=== PATIENT | male | born 1945 | race Caucasian/White ===

== ENCOUNTER → 2017-08-08 | Outpatient (CLI) | payer MEDICARE, OTHER ==
[~2017-08-08] MED LIST: FAMO20TA28 PO; FIN5 PO; FINA5TAB64 PO; FINA5TAB67 PO; ONDA4TAB97 PO; PNEU0.5D3 IM; SCOT TD; TAMS0.4C25 PO; TAMS0.4C70 PO; TAMS0.4C76 PO; TRIA5T TOP
== END ==
LOC: LAB 16:15
PROVIDERS: ATTEND Urology
DX: N40.1 Benign prostatic hyperplasia with lower urinary tract symptoms (principal); R33.9 Retention of urine, unspecified
CPT/HCPCS: 36415; 82040; 82247; 82310; 82374; 82435; 82565; 82947; 84075; 84132; 84153; 84155; 84295; 84450; 84460; 84520

== ENCOUNTER → 2017-08-10 | Outpatient (CLI) | payer MEDICARE, OTHER | LOC: LAB 09:58 | PROVIDERS: ATTEND Urology | DX: R33.9 Retention of urine, unspecified (principal); R79.89 Other specified abnormal findings of blood chemistry | CPT/HCPCS: 36415; 82040; 82247; 82310; 82374; 82435; 82565; 82947; 84075; 84132; 84155; 84295; 84450; 84460; 84520 ==

== ENCOUNTER → 2017-08-14 | Outpatient (CLI) | payer MEDICARE, OTHER ==
--- NOTE | 2017-08-14 15:20 | RADIOLOGY IMAGING REPORT ---
FACILITY: [facility] PATIENT NAME: Shayne Hair : 1945 MR: [id number] V: [id number] EXAM DATE: ORDERING PHYSICIAN: GISSEL ASHLEY TECHNOLOGIST: Location: [facility] Patient: Shayne Hair : 1945 Visit/Account:[id number] Date of Sevice: 08/14/2017 KIDNEYS EXAMINATION: Renal ultrasound. History: Urinary retention COMPARISON STUDIES: Abdomen ultrasound September 28, 2016 FINDINGS: Kidneys: Right kidney- 14.9 x 6.2 x 7 cm Left kidney- 10.8 x 6.9 x 6.2 cm Uniform and symmetric blood flow in each kidney by Doppler ultrasound. Hydronephrosis: none Resistive index on the right 0.65. Resistive index on the left 0.54. There is a 10.1 cm cyst projecting from the upper pole the right kidney. Bladder: The bladder appears extremely trabeculated and irregular. The prevoid bladder volume was 71 6 mL. The post void residual 630 mL. Bilateral ureteral jets are present Abdominal aorta and IVC: Aorta and IVC are patent by Doppler ultrasound. IMPRESSION: Large post void bladder residual of 630 mL. The bladder wall appears extremely trabeculated and irre gular .10.1 cm cyst projects from the upper pole the right kidney Report Dictated By: Vandana Henson MD at 08/14/2017 3:12 PM Report E-Signed By: Vandana Henson MD at 08/14/2017 3:15 PM WSN:[id number]
== END ==
LOC: US 00:55
PROVIDERS: ATTEND Urology
DX: N28.1 Cyst of kidney, acquired (principal); R33.9 Retention of urine, unspecified
CPT/HCPCS: 36415; 76705; 82040; 82247; 82310; 82374; 82435; 82565; 82947; 84075; 84132; 84155; 84295; 84450; 84460; 84520

== ENCOUNTER → 2018-07-11 | Outpatient (CLI) | payer MEDICARE, OTHER | LOC: LAB 08:20 | PROVIDERS: ATTEND Urology | DX: N40.1 Benign prostatic hyperplasia with lower urinary tract symptoms (principal) | CPT/HCPCS: 36415; 84153 ==

== ENCOUNTER → 2018-09-05 | Outpatient (CLI) | payer MEDICARE, OTHER ==
[2018-09-05 11:43] LABS: PLATELET COUNT, AUTOMATED 294 K/uL (150-450)
[2018-09-05 11:59] LABS: LDL CHOLESTEROL 96 mg/dl
--- NOTE | 2018-09-05 12:54 | EKG ---
FACILITY: [facility] PATIENT NAME: JESÚS SOTO : [id number] MR: [id number] V: [id number] EXAM DATE: ORDERING PHYSICIAN: JUAN CORBIN TECHNOLOGIST: KATHARINE Test Reason : PRE-OP Blood Pressure : / mmHG Vent. Rate : 046 BPM Atrial Rate : 046 BPM P-R Int : 316 ms QRS Dur : 146 ms QT Int : 498 ms P-R-T Axes : 031 076 -04 degrees QTc Int : 435 ms Sinus bradycardia with 1st degree AV block Right bundle branch block Abnormal ECG When compared with ECG of 28-SEP-2016 07:00, No significant change was found Confirmed by Yovani Vivas ([id number]) on 09/05/2018 10:36:35 PM Referred By: Confirmed By:Yvoani Sampson
== END ==
LOC: LAB 11:11
PROVIDERS: ATTEND Internal Medicine
DX: K63.5 Polyp of colon (principal); G47.34 Idiopathic sleep related nonobstructive alveolar hypoventilation; E78.5 Hyperlipidemia, unspecified
CPT/HCPCS: 36415; 82040; 82247; 82310; 82374; 82435; 82465; 82565; 82947; 83718; 84075; 84132; 84155; 84295; 84443; 84450; 84460; 84478; 84520; 85025

== ENCOUNTER 2018-10-03 01:18 | Day surgery (SDC) | payer MEDICARE, OTHER ==
--- NOTE | 2018-10-01 20:40 | HISTORY AND PHYSICAL ---
DATE OF ADMISSION: October 03, 2018 CHIEF COMPLAINT BPH with obstructive voiding symptoms and chronic urinary retention. HISTORY OF PRESENT ILLNESS Patient is a 72-year-old white male who was referred to the Urology Clinic one year ago by Dr. Larios for ongoing BPH symptoms. At that time, the patient was on Flomax and Proscar and stated that his symptoms had been slowly progressing over the past several months. He had an AUA Symptom Score of 31 out of 35, a postvoid residual with a bladder scan greater that was greater than 1000 mL. A Urena catheter was placed at that time and returned a 2900 mL volume. He subsequently failed a voiding trial and was started on CIC. The patient states he is only voiding small amounts of urine. Mainly most of his volume is coming out through the catheter. Options were discussed with the patient, and a workup proceeded. He underwent formal urodynamics, which revealed a large volume, low pressure bladder. He did not void at 1000 mL and only a mild sensation of fullness. A cystoscopy was performed, which showed no urethral strictures. He had some mildly obstructing lateral lobes and no significant median lobes or intraprosthetic protrusion in through the bladder. His bladder was 2+ trabeculated. It was otherwise normal. A transrectal ultrasound performed showed a 38 cc volume prostate with no median lobe. These results were extensively discussed with the patient. He was informed he likely has permanent bladder damage from long-standing chronic urinary retention. Options would be to continue CIC versus standard transurethral resection of the prostate versus a minimally invasive procedure such as UroLift. He has been informed that the UroLift procedure has not been officially approved for chronic urinary retention; however, there are several case reports, and several physicians have had good results in this particular situation. I have given him approximately a 50/50 chance of voiding after this procedure, but he would likely continue to need to do CIC at least once a day. If this is unsuccessful, he could always proceed on to a standard TURP if he so desired or continue to use his current CIC regimen. PAST MEDICAL HISTORY 1. Hypercholesterolemia. 2. Mild obstructive sleep apnea. 3. BPH with chronic urinary retention. 4. Hard of hearing. 5. Sinus bradycardia. PAST SURGICAL HISTORY 1. Appendectomy. 2. Tonsillectomy. 3. Colonoscopy. ALLERGIES No known drug allergies. CURRENT MEDICATIONS Finasteride. SOCIAL HISTORY Patient is and lives in [place], [place]. He denies illicit drug use. REVIEW OF SYSTEMS Patient denies chest pain, shortness of breath, nausea, vomiting, fever, chills, gross hematuria, flank pain, bleeding disorder, or liver disease. PHYSICAL EXAMINATION GENERAL: Patient is a well-developed, well-nourished white male in no acute distress. HEENT: Normocephalic, atraumatic. CHEST: Clear to auscultation bilaterally. CARDIOVASCULAR: Regular rate and rhythm. ABDOMEN: Soft, nontender. No masses are palpated. GENITOURINARY: Deferred to the OR. EXTREMITIES: Without clubbing, cyanosis, or edema. NEUROLOGIC: Nonfocal. IMPRESSION A 72-year-old white male with what appears to be chronic urinary retention, now being managed on clean intermittent catheterization after failed maximum medical therapy. He desires a minimally invasive procedure. We will proceed with UroLift. 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 PLAN Will perform anesthetic cystoscopy, followed by UroLift implants. VONNIE
[~2018-10-03] VITALS: Ht 177.8 cm; Wt 79.8 kg
[2018-10-03 10:13] VITALS: BP 107/80
[2018-10-03] MEDS ORDERED: ONDANSETRON 4 MG/2 ML VIAL ONE (10:20)
[2018-10-03] MEDS ORDERED: DEXAMETHASONE SOD PHOS 10MG/ML ONE (10:20)
[2018-10-03] MEDS ORDERED: PROPOFOL EMUL(*) 10MG/ML 20 ML 20 ML ONE (10:20)
[2018-10-03] MEDS ORDERED: fentaNYL CITR 100 MCG/2 ML AMP ONE (10:21)
[2018-10-03] MEDS ORDERED: FAMOTIDINE 20 MG TAB PO ONE (11:00)
[2018-10-03] MEDS ORDERED: NORMOSOL R SOLN(*) 1000 ML BAG 1,000 ML IV PRN (11:00)
[2018-10-03] MEDS ORDERED: LIDOCAINE/SOD BICARB 8.4% SYR ID ONE (11:00)
[2018-10-03] MEDS ORDERED: GENTAMICIN IVPB ONE (11:00)
[2018-10-03] MEDS ORDERED: ceFAZolin(*) 1 GM VIAL 1 GM in NS(*) 0.9% 100 ML MINI-BAG 100 ML IVPB ONE (11:00)
[2018-10-03] MEDS ORDERED: MIDAZOLAM 2 MG/2 ML VIAL IVP PRN (11:00)
[2018-10-03] MEDS ORDERED: NS 0.9% IVPB ONE (11:00)
[2018-10-03] MEDS ORDERED: PHEN200T32 PO (11:47)
[2018-10-03] MEDS ORDERED: CEPH500T7 PO (11:48)
--- NOTE | 2018-10-04 17:01 | OPERATIVE REPORT 1 ---
EVENT DATE: October 03, 2018 SURGEON: Jake Saenz MD ANESTHESIOLOGIST: Shayne Cavanaugh MD ANESTHESIA: General. PREOPERATIVE DIAGNOSIS Benign prostatic hypertrophy with obstructive voiding symptoms and chronic urinary retention. POSTOPERATIVE DIAGNOSIS Benign prostatic hypertrophy with obstructive voiding symptoms and chronic urinary retention. PROCEDURE PERFORMED 1. Cystoscopy. 2. Bladder irrigation with double antibiotic solution. 3. UroLift prostatic urethral implant x6. ESTIMATED BLOOD LOSS Minimal. INTRAVENOUS FLUIDS Crystalloid. DRAINS 18-Ghanaian coude Urena catheter. STATEMENT OF MEDICAL NECESSITY Patient is a 72-year-old white male who was referred to the urology clinic by Dr. Larios for BPH symptoms approximately one year ago. At that time, he was noted to be in urinary retention with a volume of 2.9 L. He was subsequently started on Flomax and Proscar, but has failed to spontaneously empty his bladder. He was started on CIC, which he has been doing since that time. He underwent formal urodynamics, which revealed a large-volume, low-pressure bladder, and did not void after 1000 mL and only had a mild sensation of fullness. Other workup revealed a PSA of 1.5 and a prostatic volume of 38 mL. His current symptom score is 5, but he is not spontaneously voiding. He had no significant median lobe or intraprostatic protrusion of his prostate on workup. Options were discussed, and he has elected to undergo UroLift implant in an attempt to relieve his retention, given its minimally invasive nature. He understands that if this is not successful, he may continue with CIC or advance on to traditional transurethral resection of the prostate. Operative consent is signed and on the chart. DESCRIPTION OF PROCEDURE Patient was brought to the operating room after general anesthetic was obtained. The patient underwent cystoscopic exam using the 20-Ghanaian cystoscope with visual obturator. The scope was advanced into the bladder without difficulty. The patient's urethra appeared normal except for obstructing lateral lobes. Once in the bladder, the scope sheath was used to irrigate the bladder with approximately 500 mL double antibiotic solution. At this point, UroLift procedure was performed. The visual obturator was removed and the cystoscopic sheath was then used to place a UroLift delivery device. The first treatment was aimed at the patient's left side, approximately 1.5 cm distal to the bladder neck on the anterior third of the prostate, aiming at approximately the 2 to 3 o'clock position. The distal tip of the delivery device was angled laterally at approximately 20 degrees to compress the lateral lobe of the prostate. At this point, the needle safety lock was released. The blue trigger was then deployed to deploy the needle containing the implant to the outside of the prostate. The correa trigger level was then depressed to allow the needle to be retracted in the device, thereby delivering the capsular tab. At this point, the implant was tensioned to assure capsular seating and removal of the slack filament. Device was then angled back toward the midline and slowly advanced approximately 3 cm proximally, keeping the blue suture in the center of the keyhole until the white line on the suture was visualized just at this point. The urethral release button was pressed to affix the urethral endpiece to the monofilament and to cut the excess suture, thereby tailoring the size of the implant to this area of the prostate. At this point, the delivery device was then readvanced into the bladder. The device was then replaced inside the cystoscopic sheath with a new one, and the implantation location and opening effect were then confirmed cystoscopically. The same procedure was then repeated on the right side, again 1.5 cm from the bladder neck, in a similar location. Following this, two distal implants were performed, one on the right and one on the left, using the same technique, and they were delivered just proximal the verumontanum. Cystoscopy was again performed with the visual obturator, and he was noted to have some persistent prostatic obstruction. Therefore, two more implants were delivered in the mid prostate using the same technique. Following this, the visual obturator was then used, and final cystoscopic exam was performed. The patient was noted to have a continuous anterior chamber of the urethra with irrigation flow turned off. The scope was then removed. An 18-Ghanaian coude Urena catheter was placed with 10 mL in the balloon. This was placed to gravity drainage. The patient was awakened in the operating room and taken to the recovery area in stable condition. The plan will be to allow the patient to be discharged home today with his Urena catheter in place. We will plan to see him in the urology clinic on the in the morning to remove his catheter and to do a voiding trial. He is being sent home on Pyridium as well as Keflex for one week. VONNIE
== END 2018-10-03 12:35 | disposition home or self-care (01) ==
LOC: OR 01:18
PROVIDERS: ATTEND Urology
DX: N40.1 Benign prostatic hyperplasia with lower urinary tract symptoms (principal)
CPT/HCPCS: 36415; 51700; 52441; 52442; 81001; 87077; 87088; 87186; A9270; J0690; J1100; J1580; J2250; J2405; J2704; J3010; J7050; L8699; 82040; 82247; 82310; 82374; 82435; 82565; 82947; 84075; 84132; 84155; 84295; 84450; 84460; 84520